=== PATIENT | male | born 1965 | race Caucasian/White ===

== ENCOUNTER → 2016-05-24 | Outpatient (CLI) | payer BC ==
[~2016-05-24] MED LIST: OXYC-57 PO
--- NOTE | 2016-05-24 14:31 | DIAGNOSTIC IMAGING REPORT ---
LEFT KNEE 2 VIEWS CLINICAL HISTORY: Left knee pain. FINDINGS: AP and lateral views of the left knee are obtained. No prior studies are available for comparison at the time of dictation. The skeletal structures appear osteopenic. No fracture is seen. There is only minimal tricompartmental degenerative joint space narrowing. Small patellar enthesophytes are observed. There is no large joint effusion. Prepatellar soft tissue swelling is noted. IMPRESSION: 1. Prepatellar soft tissue swelling with no acute bony abnormality seen in the left knee. 2. Osteopenia and mild degenerative change as above. Electronically signed by: Yariel Benavides M.D. 05/24/2016 2:30 PM Dictated Date/Time: 05/24/2016 2:29 PM
== END | disposition home or self-care (01) ==
LOC: C.RADBC 14:04
PROVIDERS: ATTEND Nurse Practitioner
DX: M25.562 Pain in left knee (principal); M25.462 Effusion, left knee; M85.862 Other specified disorders of bone density and structure, left lower leg

== ENCOUNTER → 2016-08-30 | Outpatient (CLI) | payer BC ==
--- NOTE | 2016-08-30 15:55 | DIAGNOSTIC IMAGING REPORT ---
TWO VIEW CHEST CLINICAL HISTORY: Sarcoidosis. FINDINGS: PA and lateral chest radiographs are compared to study dated 10/14/2013. The cardiomediastinal silhouette is unremarkable. There is elevation of the right hemidiaphragm with mild right basilar atelectasis. Subtle foci of nodularity are present throughout both lungs. There is no airspace consolidation or pleural effusion. No pneumothorax is seen. The bony thorax appears intact. IMPRESSION: 1. No acute cardiopulmonary abnormality. 2. Subtle foci of parenchymal nodularity are suggested. This may correspond to the reported clinical history of sarcoidosis. Consider chest CT for further assessment. Electronically signed by: Yariel Benavides M.D. 08/30/2016 3:54 PM Dictated Date/Time: 08/30/2016 3:52 PM
== END | disposition home or self-care (01) ==
LOC: C.RAD1850 15:36
PROVIDERS: ATTEND Internal Medicine Critical Care Medicine
DX: D86.9 Sarcoidosis, unspecified (principal)